=== PATIENT | female | born 2000 | race Caucasian/White ===

== ENCOUNTER → 2021-10-04 00:29 | Outpatient (CLI) | payer OTHER, SELFPAY ==
--- NOTE | 2021-10-04 07:45 | DI.MRI_ITS ---
Exam(s) MR LUMBAR SPINE WO EXAM: MR LUMBAR SPINE WO CLINICAL HISTORY: Bilat Radiculopathy R>L,low back pain, m54.16,m54.50. TECHNIQUE: Multiplanar multisequence MRI of the Lumbar spine was performed. COMPARISON: No exams were available for comparison FINDINGS: Bones: The last intervertebral disc space is designated the L5/S1 level for the numbering purpose of this examination. The vertebral body heights are well maintained. Alignment is satisfactory. The si gnal characteristics are unremarkable. Cord: The conus tip ends at the T12 level. It is of normal size and signal intensity. T12-L1: No disc herniations or bulges are present. No central spinal canal or neural foraminal stenos is. L1-2: No disc herniations or bulges are present. No central spinal canal or neural foraminal stenosis . L2-3: No disc herniations or bulges are present. No central spinal canal or neural foraminal stenosis . L3-4: No disc herniations or bulges are present. No central spinal canal or neural foraminal stenosis . L4-5: There is disc desiccation. There is a large disc herniation slightly paracentral to the right. It does appear to compress the right L5 nerve root. There also appears to be mild compression upon the left L5 nerve root. There is moderate narrowing of the central spinal canal resulting from the disc.No neural foraminal stenosis. L5-S1: No disc herniations or bulges are present. No central spinal canal or neural foraminal stenosi s. Soft tissues: The visualized SI joints and sacrum are well maintained. The paraspinal soft tissues ar e unremarkable. Note is made of cholelithiasis. Visualized abdominal organs: Unremarkable. IMPRESSION: 1. Large disc herniation at L4-L5 slightly paracentral to the right. It does appear to compress the right L5 nerve root and mildly compress the left L5 nerve root. There is a resulting moderate narrow ing of the central spinal canal present. 2. Cholelithiasis. DATA REPOSITORY:
== END ==
PROVIDERS: PCP Nurse Practitioner Family; Visit Provider Nurse Practitioner Family
DX: M54.16 Radiculopathy, lumbar region (principal); M54.59 Other low back pain; M51.17 Intervertebral disc disorders with radiculopathy, lumbosacral region
CPT/HCPCS: 72148